=== PATIENT | female | born 1985 | race Caucasian/White ===

== ENCOUNTER 2016-09-29 21:55 | Emergency (ER) | payer SELFPAY ==
[~2016-09-29] VITALS: Ht 177.8 cm; Wt 94.9 kg
[2016-09-29 23:03] LABS: HEMATOCRIT 42.1 % (36.0-46.0); MCH 29.1 PG (29.0-34.0); MCV 85.6 FL (83-99); MEAN PLAT.VOLUME 9.6 uM^3 (9.5-12.4); PLATELET COUNT 240 K/uL (156-360); RBC DIS.WIDTH-CV 12.1 % (11.8-14.6); RBC DIS.WIDTH-SD 37.7 % (39-53); RED BLOOD COUNT 4.92 M/uL (3.80-5.20); WHITE BLOOD COUNT 9.2 K/uL (4.1-10.2)
[2016-09-29 23:20] LABS: CHLORIDE 107 mEq/L (99-109); POTASSIUM 3.9 mEq/L (3.7-5.4); SODIUM 139 mEq/L (136-147)
[2016-09-29 23:21] LABS: GLUCOSE 82 mg/dL (70-99)
[2016-09-29 23:23] LABS: ANION GAP 12 MEQ/L (2-14)
[2016-09-29 23:26] LABS: UREA NITROGEN (BUN) 10 mg/dL (9-23)
[2016-09-29 23:28] LABS: GFR ESTIMATE (CALCULATED) > 59 mL/min/
[2016-09-29 23:35] LABS: TROP-I INTERPRETATION NEGATIVE; TROPONIN-I < 0.01 ng/mL (0.0-0.30)
[2016-09-30 00:37] LABS: D-DIMER ELISA < 150.00 ng/mLDDU (<230)
[2016-09-30 00:48] LABS: TROP-I INTERPRETATION NEGATIVE; TROPONIN-I < 0.01 ng/mL (0.0-0.30)
[2016-09-30 01:39] VITALS: BP 130/92
== END 2016-09-30 01:39 | disposition home or self-care (01) ==
LOC: EME 21:55
PROVIDERS: Emergency Medicine
DX: R07.9 Chest pain, unspecified (principal)
CPT/HCPCS: 71020; 80048; 84484; 85027; 85379; 93005; 99281; 99284